=== PATIENT | male | born 1980 | race Caucasian/White ===

== ENCOUNTER 2016-11-05 14:17 | Emergency (ER) | payer SELFPAY ==
[~2016-11-05] VITALS: Ht 185.4 cm; Wt 110.0 kg
[2016-11-05 14:21] VITALS: BP 128/84; PULSE 88; RESP 16; TEMP 98; O2SAT 95
[2016-11-05] MEDS ORDERED: PROPARACAINE HCL 0.5% OPHT SOLN 15 ML BTL RIGHT EYE ONE (14:30)
[2016-11-05] MEDS ORDERED: PROPARACAINE HCL 0.5% OPHT SOLN 15 ML BTL LEFT EYE ONE (14:30)
--- NOTE | 2016-11-05 14:39 | PD ---
HPI Chief Complaint: Foreign Body Time Seen by Provider: 14:39 Travel History International Travel<30 days: No Contact w/Intl Traveler<30days: No Traveled to known affect area: No History of Present Illness HPI 36-year-old male presents to the emergency department for evaluation of foreign body in left eye. Patient states that about 30 minutes ago he got into his truck and slammed the door closed because it is an old truck and takes forced to close the door. States that when he did this the window shattered and he thinks he got a piece of glass in his left eye. States that he's had increased tearing and foreign body sensation since this occurred. Denies contact lens wearing. No other complaints. PFSH Past Medical History Medical History: Denies Significant Hx Tetanus Vaccination: Unknown Influenza Vaccination: No Past Surgical History Surgical History: No Previous Surgery Social History Alcohol Use: No Tobacco Use: Yes (2 PPD) Substance Use: No Allergies-Medications (Allergen,Severity, Reaction): Coded Allergies: No Known Allergies (Unverified , 11/05/16) Reported Meds & Prescriptions Reported Meds & Active Scripts Active No Active Prescriptions or Reported Medications Review of Systems Except as stated in HPI: all other systems reviewed are Neg Physical Exam Narrative GENERAL: Well-nourished and well-developed pleasant patient in no acute distress who is nontoxic appearing. SKIN: Warm and dry. HEAD: Normocephalic and atraumatic. EYES: No injection, drainage, or hyphema noted. PERRLA. EOMI. Mild left scleral injection with increased tearing. No foreign body noted on lid eversion. Proparacaine drop instilled into the left eye. Fluorescein stain reveals no uptake. No ulcerations, abrasions, or foreign bodies noted the cornea is clear. ENT: No nasal drainage noted. Oropharynx is clear. NECK: Supple and the trachea is midline. CARDIOVASCULAR: Regular rate and rhythm. RESPIRATORY: Breath sounds are equal bilaterally with no accessory muscle use, wheezing, rhonchi, or crackles. NEUROLOGICAL: Awake, alert, and oriented. Normal speech and gait. Cranial nerves are grossly intact. Data Data Last Documented VS Vital Signs Date Time Temp Pulse Resp B/P Pulse Ox O2 Delivery O2 Flow Rate FiO2 11/05/16 14:21 98.0 88 16 128/84 95 Orders Proparacaine 0.5% Opth Soln (Alcaine 0.5 (11/05/16 14:30) Proparacaine 0.5% Opth Soln (Alcaine 0.5 (11/05/16 14:30) MDM Medical Decision Making Medical Screen Exam Complete: Yes Emergency Medical Condition: Yes Differential Diagnosis Foreign body sensation versus corneal abrasion versus conjunctivitis Narrative Course 36-year-old male presents to the emergency department for evaluation of left eye foreign body sensation after his truck window broke. Patient's afebrile, vital signs are stable. Fluorescein stain is negative. Visual acuity in the left is 20/70, right 20/20, bilateral 20/20. My attending physician Dr. Almanza also evaluated the patient and agrees with my assessment and findings. This is for body sensation likely secondary to irritation however no abrasions and no foreign body visualized. Discussed supportive care. Advised follow-up with an legal aide if symptoms persist. Patient verbalizes understanding and agreement with treatment plan. Diagnosis Primary Impression: Sensation of foreign body in eye Referrals: [facility] In[facility] Patient Instructions: General Instructions Additional Instructions: Follow-up with ophthalmology if symptoms persist. Return to the ED for any acute worsening of symptoms. Med/Other Pt SpecificInfo: No Change to Meds Scripts No Active Prescriptions or Reported Meds Disposition: 01 DISCHARGE HOME Condition: Stable Monse Tineo Nov 05, 2016 14:39
== END 2016-11-05 14:55 | disposition home or self-care (01) ==
LOC: PHEFT 14:17
DX: H57.8 Other specified disorders of eye and adnexa (principal); F17.200 Nicotine dependence, unspecified, uncomplicated; W25.XXXA Contact with sharp glass, initial encounter; Y92.812 Truck as the place of occurrence of the external cause
CPT/HCPCS: 99283